=== PATIENT | male | born 1965 ===

== ENCOUNTER 2018-06-20 09:25 | Emergency (ER) | payer OTHER, BC ==
--- NOTE | 2018-06-20 09:34 | EDM.PDOC ---
ED HPI GENERAL MEDICAL PROBLEM - General Chief Complaint: Back Pain or Injury Stated Complaint: LOWER BACK PAIN, LEGS GOING NUMB. Time Seen by Provider: 06/20/18 09:28 - History of Present Illness INITIAL COMMENTS - FREE TEXT/NARRATIVE: HISTORY AND PHYSICAL: History of present illness: Patient's 52-year-old male with history of chronic back pain was a history of L4 -L5 disc disease he has done well with chiropractic therapy for the last several years prior to that he did receive some spinal injections approximately 5 years prior for this problem. He resents now with progressively worsening lower back pain he states he has some paresthesia of his inferior extremities intermittently there's been no incontinence or retention of bowel or bladder no other numbness or weakness. Review of systems: As per history of present illness and below otherwise all systems reviewed and negative. Past medical history: As per history of present illness and as reviewed below otherwise noncontributory. Surgical history: As per history of present illness and as reviewed below otherwise noncontributory. Social history: No reported history of drug or alcohol abuse. Family history: As per history of present illness and as reviewed below otherwise noncontributory. Physical exam: HEENT: Atraumatic, normocephalic, pupils reactive, negative for conjunctival pallor or scleral icterus, mucous membranes moist, throat clear, neck supple, nontender, trachea midline. Lungs: Clear to auscultation, breath sounds equal bilaterally, chest nontender. Heart: S1S2, regular, negative for clicks, rubs, or JVD. Abdomen: Soft, nondistended, nontender. Negative for masses or hepatosplenomegaly. Negative for costovertebral tenderness. Pelvis: Stable nontender. Genitourinary: Deferred. Rectal: Deferred. Extremities: Atraumatic, negative for cords or calf pain. Neurovascular unremarkable. Neuro: Awake, alert, oriented. Cranial nerves II through XII unremarkable. Cerebellum unremarkable. Motor and sensory unremarkable throughout. Exam nonfocal. Back: Patient has paravertebral tenderness at the level of lumbar spine no vertebral body or point tenderness patient is able to stand on his toes back on his heels motor and sensory exam is unremarkable as are deep tendon reflexes Diagnostics: CT lumbar spine Therapeutics: Toradol 60 mg IM Impression: #1 chronic back pain with acute exacerbation #2 lumbar radiculopathy Definitive disposition and diagnosis as appropriate pending reevaluation and review of above. Treatments TILLER MAN: Reports: NSAIDS - Related Data Allergies Allergy/AdvReac Type Severity Reaction Status Date / Time No Known Allergies Allergy Verified 06/20/18 09:35 Home Meds: Home Meds Levothyroxine Sodium [Synthroid] 0 mg PO DAILY 06/20/18 [History] Simvastatin [Zocor] 0 mg PO BID 06/20/18 [History] ED ROS GENERAL - Review of Systems Review Of Systems: ROS reveals no pertinent complaints other than HPI. ED EXAM, GENERAL - Physical Exam Exam: See Below (See dictation) Course - Vital Signs Last Recorded V/S: Last Vital Signs Temp 36.2 C 06/20/18 09:29 Pulse 70 06/20/18 10:42 Resp 18 06/20/18 10:42 BP 126/75 06/20/18 10:42 Pulse Ox 96 06/20/18 10:42 - Orders/Labs/Meds Orders: Active Orders 24 hr Category Date Time Status Lumbar Spine wo Cont [CT] Stat Exams 06/20/18 09:29 Taken Departure - Departure Time of Disposition: 11:04 Disposition: Home, Self-Care 01 Condition: Good Clinical Impression: Lumbosacral disc disease - Discharge Information *PRESCRIPTION DRUG MONITORING PROGRAM REVIEWED*: Not Applicable *COPY OF PRESCRIPTION DRUG MONITORING REPORT IN PATIENT LORENE: Not Applicable Referrals: PCP,None [Primary Care Provider] - Forms: ED Department Discharge Additional Instructions: The following information is given to patients seen in the emergency department who are being discharged to home. This information is to outline your options for follow-up care. We provide all patients seen in our emergency department with a follow-up referral. The need for follow-up, as well as the timing and circumstances, are variable depending upon the specifics of your emergency department visit. If you don't have a primary care physician on staff, we will provide you with a referral. We always advise you to contact your personal physician following an emergency department visit to inform them of the circumstance of the visit and for follow-up with them and/or the need for any referrals to a consulting specialist. The emergency department will also refer you to a specialist when appropriate. This referral assures that you have the opportunity for followup care with a specialist. All of these measure are taken in an effort to provide you with optimal care, which includes your followup. Under all circumstances we always encourage you to contact your private physician who remains a resource for coordinating your care. When calling for followup care, please make the office aware that this follow-up is from your recent emergency room visit. If for any reason you are refused follow-up, please contact the [facility] emergency department at and asked to speak to the emergency department charge nurse. Hydrocodone and Flexeril Medrol as prescribed follow-up spine surgeon as discussed return as needed as discussed activity as discussed - My Orders Last 24 Hours: My Active Orders 06/20/18 09:29 Lumbar Spine wo Cont [CT] Stat - Assessment/Plan Last 24 Hours: My Active Orders 06/20/18 09:29 Lumbar Spine wo Cont [CT] Stat
--- NOTE | 2018-06-22 11:02 | CT ---
EXAM DATE: 06/20/18 PATIENT'S AGE: 52 Patient: TREVOR OCHOA Facility: [place], [place] Site . Site : [id number] Study: CT Spine Lumbar WO CONT [id number]/18/2018 9:50:00 AM Ordering Physician: Susie Lopez Final Report: INDICATION: Lower back pain. Left leg numbness. TECHNIQUE: Noncontrast CT images were acquired through the lumbar spine. COMPARISON: None. FINDINGS: The lumbar lordosis preserved. No spondylolisthesis. Vertebral body heights are maintained. No acute fracture. Small Schmorl`s nodes at multiple levels. Trace retrolisthesis of L5 on S1. T12-L1: No significant spinal canal or neural foraminal stenosis. L1-2: No significant spinal canal or neural foraminal stenosis. L2-3: No significant spinal canal or neural foraminal stenosis. L3-4: Mild disc height loss. Shallow circumferential disc bulge. Mild left facet joint arthropathy. No significant spinal canal or neural foraminal stenosis. L4-5: [id number] disc height loss. Mild bilateral facet arthropathy. Left eccentric disc bulge or disc protrusion asymmetrically narrows the left lateral recess with potential mass effect on the traversing left L5 nerve roots. Right eccentric endplate spondylitic ridging. No significant spinal canal stenosis. [id number] right without significant left neural foraminal stenosis. L5-S1: Advanced disc degeneration and disc height loss with vacuum disc phenomenon and endplate sclerosis. Endplate spondylitic ridging. Circumferential disc bulge. Mild bilateral facet arthropathy. No significant spinal canal stenosis. Moderately severe right and moderate left neural foraminal stenosis with potential impingement of the exiting L5 nerve roots. Sacroiliac joint degenerative changes. Trace atherosclerotic calcifications. IMPRESSION: 1. No acute fracture. 2. At L5-S1, moderately severe right and moderate left neural foraminal stenosis with potential impingement of the exiting L5 nerve roots. Advanced disc height loss and disc degeneration. 3. At L4-5, left eccentric disc bulge or disc protrusion asymmetrically narrows the left lateral recess with potential mass effect on the traversing left L5 nerve roots. Please note that all CT scans at this facility use dose modulation, iterative reconstruction, and/or weight-based dosing when appropriate to reduce radiation dose to as low as reasonably achievable. Dictated by Charles Pina MD @ Jun 20 2018 10:38AM (Electronic Signature) Report Signed by Proxy. [facility]
== END 2018-06-20 11:19 | disposition home or self-care (01) ==
LOC: MW.ED 09:25
DX: M54.16 Radiculopathy, lumbar region (principal); Z79.899 Other long term (current) drug therapy
CPT/HCPCS: 72131; 72131-26; 99283; 99283-25